=== PATIENT | female | born 1955 | race Caucasian/White ===

== ENCOUNTER 2017-05-22 11:36 | Emergency (ER) | payer OTHER ==
[~2017-05-22] VITALS: Ht 165.1 cm; Wt 86.2 kg
--- OUTSIDE RECORDS SUMMARY | 2017-05-22 11:45 | XMS REPORT | Continuity of Care Document ---
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 FARMER Ot V76.12 05/29/2015 Ot 793.89 05/29/2015 Ot V76.12 05/29/2015 Ot 793.80 05/29/2015 Ot 793.80 05/29/2015 Ot V67.9 05/29/2015 Ot V76.12 05/29/2015 Ot V76.12 05/29/2015 Ot 240.9 05/29/2015 JACOB SLOAN, EVANS Salas Ot 241.0 05/29/2015 TED SIGALA GINGER FARMER Ot 240.9 05/29/2015 VIVIAN GORMAN MD Ot 193 05/29/2015 VIVIAN GORMAN MD Ot 193 05/29/2015 TED SIGALA GINGER FARMER Ot V76.12 05/29/2015 Ot 193 05/29/2015 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 Visit Date/Time Discharge Status Pt. Type Provider Facility Loc./Unit Complaint [id number] 05/29/2015 16:46:00 2014 23:59:59 CLS Outpatient BOB SIGALA DO [facility] LAB [id number] 04/27/2014 11:04:00 2013 23:59:59 CLS Outpatient TED SIGALA GINGER FARMER [facility] RAD [id number] 03/29/2013 10:15:00 2012 00:01:00 DIS Outpatient VIVIAN GORMAN MD [facility] ONC [id number] 04/26/2013 14:34:00 2012 23:59:59 CLS Outpatient TED SIGALA GINGER FARMER [facility] RAD [id number] 04/07/2013 08:54:00 2012 23:59:59 CLS Outpatient VIVIAN GORMAN MD [facility] RAD PAPILLARY THYROID CA [id number] 03/29/2013 10:53:00 2012 23:59:59 CLS Outpatient VIVIAN GORMAN MD [facility] RAD PAPILLARY THYROID CA [id number] 12/07/2012 10:49:00 2012 23:59:59 CLS Outpatient TED SIGALAP [facility] RAD [id number] 11/09/2012 10:07:00 2012 23:59:59 CLS Outpatient JACOB SLOAN, EVANS Salas [facility] RAD [id number] 06/06/2013 00:00:00 Document Registration [id number] 10/03/2012 12:53:00 Document Registration [id number] 04/26/2012 10:19:00 Document Registration [id number] 04/23/2011 13:36:00 Document Registration [id number] 08/26/2010 12:24:00 Document Registration [id number] 01/08/2010 10:45:00 Document Registration [id number] 12/18/2009 12:45:00 Document Registration
[2017-05-22] MEDS ORDERED: ACYC200C (11:57)
[2017-05-22] MEDS ORDERED: CEFD300C3 (11:57)
[2017-05-22] MEDS ORDERED: LEVO25TA5 (11:57)
[2017-05-22] MEDS ORDERED: BUPR150T14 (11:57)
[2017-05-22] MEDS ORDERED: LIRA0.6P3 (11:57)
[2017-05-22] MEDS ORDERED: OXYMETAZOLINE (AFRIN) 0.05% NA 15 ML BTL ONE (12:18)
--- NOTE | 2017-05-22 13:03 | ED EENT ---
History of Present Illness General Chief Complaint: Nasal Problems Stated Complaint: NOSE BLEED Nursing Triage Note: AMBULATED TO ROOM 06 WITH COMPLAINTS OF RIGHT SIDED NOSE BLEED SINCE 0800 TODAY. STATES IT HAS BLED OFF AND ON WITH HER COLD BUT TODAY IT WONT STOP. Source: patient Exam Limitations: no limitations History of Present Illness Time seen by provider: 12:05 Initial Comments 61-year-old female patient presents to the emergency department with complaints of a right-sided nosebleed since 0800 today. Patient reports she has had a cold and her sinuses have been dry. Denies bruising easily. Timing/Duration: this morning Location: nose Prearrival Treatment: squeezing nostrils Presenting Symptoms/Injuries: nosebleed Modifying Factors: Worse With Other (no improvement with pressure) Allergies and Home Medications Allergies Coded Allergies: clindamycin (Verified Allergy, Unknown, 05/22/17) levofloxacin (Verified Allergy, Unknown, 05/22/17) sulfamethoxazole (Verified Allergy, Unknown, 05/22/17) trimethoprim (Verified Allergy, Unknown, 05/22/17) Home Medications Acyclovir 200 Mg Capsule, (Reported) Bupropion HCl 150 Mg Tablet.er, (Reported) Cefdinir 300 Mg Capsule, (Reported) Levothyroxine Sodium 25 Mcg Tablet, (Reported) Liraglutide 0.6 Mg/0.1 Ml Pen.injctr, (Reported) Review of Systems Constitutional: No chills, No dizziness, No fever, No malaise, No weakness Eyes: No Symptoms Reported Ears: No Symptoms Reported Nose: see HPI, congestion, epistaxis, denies pain Mouth: no symptoms reported Throat: no symptoms reported Respiratory: cough, No dyspnea on exertion, No hemoptysis, No short of breath Cardiovascular: No chest pain, No palpitations, No syncope Gastrointestinal: No abdominal pain, No hematemesis, No loss of appetite, No melena, No nausea, No vomiting Skin: no symptoms reported Neurological: No Symptoms Reported Hematologic/Lymphatic: Denies Anemia, Denies Easy Bleeding, Denies Easy Bruising All Other Systems Reviewed Negative Unless Noted: Yes (Negative excepted noted.) Past Rmfkdpx-Sygrhb-Qxwnvs Hx Patient Social History Alcohol Use: Denies Use Recreational Drug Use: No Smoking Status: Never a Smoker Recent Foreign Travel: No Contact w/Someone Who Travel: No Recent Infectious Disease Expo: No Surgeries History of Surgeries: Yes (THYROIDECTOMY, DEVIATED SEPTUM) Respiratory History of Respiratory Disorde: No Cardiovascular History of Cardiac Disorders: No Neurological History of Neurological Disord: No Gastrointestinal History of Gastrointestinal Di: No Musculoskeletal History of Musculoskeletal Dis: No Endocrine History of Endocrine Disorders: Yes (UNDIAGNOSED DIABETIC) Cancer Did You Recieve Any Treatments: No Psychosocial History of Psychiatric Problem: No Reviewed Nursing Assessment Reviewed/Agree w Nursing PMH: Yes Family Medical History Significant Family History: No Pertinent Family Hx Physical Exam Vital Signs Vital Sign - Last 12Hours 05/22/17 11:40 Temp 98.0 Pulse 91 Resp 18 B/P (MAP) 173/119 Pulse Ox 96 O2 Delivery Room Air General Appearance: WD/WN, no apparent distress Eyes: bilateral eye normal inspection, bilateral eye PERRL, bilateral eye EOMI Ears: bilateral ear auricle normal, bilateral ear canal normal, bilateral ear TM normal Nose: No active bleeding, dried blood, No sinus tenderness Mouth/Throat: normal mouth inspection, pharynx normal, No trismus, No uvula swelling, No other (no evidence of active bleeding or blood staining of the posterior pharynx noted) Neck: supple, normal inspection Cardiovascular: regular rate, rhythm, no murmur Respiratory: lungs clear, normal breath sounds, no respiratory distress, no accessory muscle use Neurologic/Psychiatric: alert, normal mood/affect, oriented x 3 Skin: normal color, warm/dry Progress/Results/Core Measures Results/Orders My Orders Orders - SHU CRUZ Oxymetazoline 0.05% Nasal [place] (Afrin 0. (05/22/17 21:00) Oxymetazoline 0.05% Nasal [place] (Afrin 0. (05/22/17 12:18) Medications Given in ED Current Medications Medications Dose Ordered Sig/Shiela Route Start Time Stop Time Status Last Admin Dose Admin Oxymetazoline HCl 15 ml STK-MED ONCE .ROUTE 05/22/17 12:18 05/22/17 12:27 DC 05/22/17 12:29 15 ML Vital Signs/I&O Vital Sign - Last 12Hours 05/22/17 05/22/17 11:40 13:24 Temp 98.0 Pulse 91 88 Resp 18 18 B/P (MAP) 173/119 Pulse Ox 96 98 O2 Delivery Room Air Blood Pressure Mean: 137 Departure Communication (Admissions) Progress Notes Patient seen and evaluated. Nose clamp applied to the patient and 3 sprays of Afrin used in each nostril 1 dose. Patient had no recurrence of epistaxis while in the emergency department. Plan for discharge to home. Impression Impression: Primary Impression: Epistaxis Disposition: 01 HOME, SELF-CARE Condition: Improved Departure-Patient Inst. Decision time for Depature: 12:57 Referrals: BOB SIGALA DO (PCP/Family) Primary Care Physician Patient Instructions: Nosebleeds (DC) Add. Discharge Instructions: All discharge instructions reviewed with patient and/or family. Voiced understanding. Afrin nasal spray 2-3 sprays in each nostril twice daily for 3 days. Continue usual home medications except hold the Excedrin Migraine headache. No aspirin, Aleve, or ibuprofen for 7 days. If nosebleed recurs, apply pressure for 10-20 minutes and apply an ice pack. Return to the emergency department a few unable to stop the bleeding. Follow-up with your family practitioner for recheck as an outpatient. Return in the emergency department for worsened symptoms or any other concerns. SHU CRUZ May 22, 2017 13:03
[2017-05-22 13:24] VITALS: BP 144/97
[2017-05-22] MEDS ORDERED: OXYMETAZOLINE (AFRIN) 0.05% NA 15 ML BTL SCH (21:00)
== END 2017-05-22 13:24 | disposition home or self-care (01) ==
LOC: EDUNIT# 11:36 → ER 11:37
DX: R04.0 Epistaxis (principal); Z90.89 Acquired absence of other organs
CPT/HCPCS: 99282

== ENCOUNTER 2017-06-20 18:43 | Emergency (ER) | payer OTHER ==
[~2017-06-20] VITALS: Ht 165.1 cm; Wt 90.7 kg
[~2017-06-20 18:43] MED LIST: ACYC200C; BUPR150T14; CEFD300C3; LEVO25TA5; LIRA0.6P3
--- OUTSIDE RECORDS SUMMARY | 2017-06-20 18:48 | XMS REPORT | Continuity of Care Document ---
Author Author [facility] Organization [facility] Address Unknown Phone Unavailable Allergies Active Description Code Type Severity Reaction Onset Reported/Identified Relationship to Patient Clinical Status Yes No Known Drug Allergies [id number] Drug Allergy Unknown N/A 03/27/2013 Yes clindamycin [id number] Drug Allergy Unknown N/A 05/22/2017 Yes levofloxacin [id number] Drug Allergy Unknown N/A 05/22/2017 Yes sulfamethoxazole [id number] Drug Allergy Unknown N/A 05/22/2017 Yes trimethoprim [id number] Drug Allergy Unknown N/A 05/22/2017 Medications There is no data. Problems Date Dx Coded Attending Type Code Diagnosis Diagnosed By 06/05/2013 VIVIAN GORMAN MD Ot 193 05/11/2014 TED SIGALA E LEARNING COORDINATOR Ot V76.12 05/29/2015 Ot 793.89 05/29/2015 Ot V76.12 05/29/2015 Ot 793.80 05/29/2015 Ot 793.80 05/29/2015 Ot V67.9 05/29/2015 Ot V76.12 05/29/2015 Ot V76.12 05/29/2015 Ot 240.9 05/29/2015 JACOB SLOAN, EVANS Salas Ot 241.0 05/29/2015 TED SIGALA Ot 240.9 05/29/2015 VIVIAN GORMAN MD Ot 193 05/29/2015 VIVIAN GORMAN MD Ot 193 05/29/2015 TED SIGALA Ot V76.12 05/29/2015 Ot 193 05/29/2015 TED SIGALAP Ot V76.12 06/07/2015 BOB SIGALA DO Ot L73.9 2016 VIVIAN GORMAN MD Ot 193 MALIGN NEOPL THYROID 10/26/2016 VIVIAN GORMAN MD Ot 193 MALIGN NEOPL THYROID 05/22/2017 Ot 193 MALIGN NEOPL THYROID Procedures There is no data. Results There is no data. Encounters ACCT No. Visit Date/Time Discharge Status Pt. Type Provider Facility Loc./Unit Complaint [id number] 05/22/2017 11:37:00 05/22/2017 13:24:00 DIS Emergency SHU SALINAS [facility] ER NOSE BLEED [id number] 05/29/2015 16:46:00 05/29/2015 23:59:59 CLS Outpatient BOB SIGALA DO [facility] LAB [id number] 04/27/2014 11:04:00 04/27/2014 23:59:59 CLS Outpatient TED SIGALA [facility] RAD [id number] 03/29/2013 10:15:00 06/05/2013 00:01:00 DIS Outpatient VIVIAN GORMAN MD [facility] ONC [id number] 04/26/2013 14:34:00 04/26/2013 23:59:59 CLS Outpatient TED SIGALAP [facility] RAD [id number] 04/07/2013 08:54:00 04/07/2013 23:59:59 CLS Outpatient VIVIAN GORMAN MD [facility] RAD PAPILLARY THYROID CA [id number] 03/29/2013 10:53:00 03/29/2013 23:59:59 CLS Outpatient VIVIAN GORMAN MD [facility] RAD PAPILLARY THYROID CA [id number] 12/07/2012 10:49:00 12/07/2012 23:59:59 CLS Outpatient TED SIGALAP [facility] RAD [id number] 11/09/2012 10:07:00 11/09/2012 23:59:59 CLS Outpatient EVANS JAMES MD [facility] RAD [id number] 06/06/2013 00:00:00 Document Registration [id number] 10/03/2012 12:53:00 Document Registration [id number] 04/26/2012 10:19:00 Document Registration [id number] 04/23/2011 13:36:00 Document Registration [id number] 08/26/2010 12:24:00 Document Registration [id number] 01/08/2010 10:45:00 Document Registration [id number] 12/18/2009 12:45:00 Document Registration
--- NOTE | 2017-06-20 20:39 | ED EENT ---
History of Present Illness General Chief Complaint: Nasal Problems Stated Complaint: NOSE BLEED Nursing Triage Note: SPONTANEOUS EPITAXIS STARTING 1330 Source: patient, spouse Exam Limitations: no limitations History of Present Illness Time seen by provider: 19:35 Initial Comments 62-year-old female patient presents to the emergency department complaints of right-sided nosebleed since 1300 today. Reports bleeding has been intermittent. She is able to get it to stop, but recurs daily. She is scheduled on June [address] winston for this. Patient was seen by this examiner 1 month ago for similar complaints. Timing/Duration: abrupt, intermittent, other (one month) Location: nose Prearrival Treatment: over the counter meds (tqix-hqc-svkuije saline spray and chills.), squeezing nostrils Presenting Symptoms/Injuries: nose bleed Allergies and Home Medications Allergies Coded Allergies: clindamycin (Verified Allergy, Unknown, 05/22/17) levofloxacin (Verified Allergy, Unknown, 05/22/17) sulfamethoxazole (Verified Allergy, Unknown, 05/22/17) trimethoprim (Verified Allergy, Unknown, 05/22/17) Home Medications Levothyroxine Sodium 25 Mcg Tablet, (Reported) Liraglutide 0.6 Mg/0.1 Ml Pen.injctr, (Reported) Past Naybqjo-Bntlpf-Stleqg Hx Patient Social History Alcohol Use: Denies Use Recreational Drug Use: No Smoking Status: Never a Smoker 2nd Hand Smoke Exposure: No Recent Foreign Travel: No Contact w/Someone Who Travel: No Recent Infectious Disease Expo: No Recent Hopitalizations: No Immunizations Up To Date Tetanus Booster (TDap): Unknown Seasonal Allergies Seasonal Allergies: No Surgeries History of Surgeries: Yes (THYROIDECTOMY, DEVIATED SEPTUM, DENTAL) Surgeries: Tubal Ligation Respiratory History of Respiratory Disorde: No Cardiovascular History of Cardiac Disorders: No Neurological History of Neurological Disord: Yes Neurological Disorders: Headaches /Migraines Reproductive System : No 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, 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 Genitourinary History of Genitourinary Disor: No Gastrointestinal History of Gastrointestinal Di: No Musculoskeletal History of Musculoskeletal Dis: No Endocrine History of Endocrine Disorders: Yes Endocrine Disorders: Hypothyroidsim HEENT History of HEENT Disorders: Yes (CHRONIC EPITAXIS) Cancer History of Cancer: No Did You Recieve Any Treatments: No Psychosocial History of Psychiatric Problem: No Integumentary History of Skin or Integumenta: No Blood Transfusions History of Blood Disorders: No Adverse Reaction to a Blood Tr: No Family Medical History Significant Family History: No Pertinent Family Hx Physical Exam Vital Signs Vital Sign - Last 12Hours 06/20/17 19:39 Temp 97.1 Pulse 67 Resp 18 B/P (MAP) 154/79 (104) Pulse Ox 99 O2 Delivery Room Air Progress/Results/Core Measures Results/Orders Vital Signs/I&O Vital Sign - Last 12Hours 06/20/17 19:39 Temp 97.1 Pulse 67 Resp 18 B/P (MAP) 154/79 (104) Pulse Ox 99 O2 Delivery Room Air Blood Pressure Mean: 104 Departure Impression Impression: Primary Impression: Epistaxis Disposition: HOME, SELF-CARE Condition: Improved Departure-Patient Inst. Decision time for Depature: 20:38 Referrals: BOB SIGALA DO (PCP/Family) Primary Care Physician Patient Instructions: Nosebleeds (DC) Add. Discharge Instructions: All discharge instructions reviewed with patient and/or family. Voiced understanding. Continue saline nasal spray or gel and cool humidifier. Compression and ice packs as needed for nosebleeds. Follow-up with Dr. Winston on June 23 as previously scheduled. Return in the emergency department for worsened symptoms or any other concerns. SHU CRUZ Jun 20, 2017 20:38
[2017-06-20 20:54] VITALS: BP 142/101
== END 2017-06-20 20:54 | disposition home or self-care (01) ==
LOC: EDUNIT# 18:43 → ER 18:44
DX: R04.0 Epistaxis (principal); G43.909 Migraine, unspecified, not intractable, without status migrainosus; E03.9 Hypothyroidism, unspecified; Z98.51 Tubal ligation status; Z90.89 Acquired absence of other organs
CPT/HCPCS: 99282

== ENCOUNTER → 2019-06-06 | Outpatient (CLI) | payer BC ==
--- NOTE | 2019-06-06 17:02 | Diagnostic Imaging Report ---
INDICATION: Left knee pain. COMPARISON: None. FINDINGS: Three views of the left knee joint demonstrate no acute fracture or dislocation. No focal osseous lesions are seen. No significant joint effusion is seen. The surrounding soft tissue structures are unremarkable. There are no radiopaque foreign bodies. IMPRESSION: 1. No acute fractures or dislocations of the left knee joint. Dictated by: Dictated on workstation # [id number]
== END ==
LOC: RAD 16:40
PROVIDERS: ATTEND Internal Medicine
DX: M25.562 Pain in left knee (principal)
CPT/HCPCS: 73562

== ENCOUNTER → 2020-05-27 | Outpatient (CLI) | payer BC | LOC: LABNPT 05:08 | PROVIDERS: ATTEND Internal Medicine | DX: Z20.828 Contact with and (suspected) exposure to other viral communicable diseases (principal) | CPT/HCPCS: 87635 ==

== ENCOUNTER 2022-03-19 08:51 | Outpatient (CLI) | payer BC ==
[~2022-03-19] VITALS: Ht 165.1 cm; Wt 95.3 kg
[~2022-03-19 08:51] MED LIST changes: +ACYC-108; -ACYC200C; +BUPR-105; -BUPR150T14
[2022-03-19] MEDS ORDERED: BEBTELOVIMAB 175 MG/2 ML VIAL IV ONE (09:15)
[2022-03-19] MEDS ORDERED: diphenhydrAMINE 50 MG/ML INJ (BENADRYL) IV PRN (09:15)
[2022-03-19] MEDS ORDERED: EPINEPHrine INJECTION 1 MG/ML AMP IM PRN (09:15)
[2022-03-19] MEDS ORDERED: ACETAMINOPHEN 500 MG TAB (TYLENOL) PO PRN (09:15)
[2022-03-19] MEDS ORDERED: ONDANSETRON 4 MG/2 ML (SDV) Z0FRAN IV PRN (09:15)
[2022-03-19 09:23] VITALS: BP 130/67
[2022-03-19 09:58] VITALS: BP 130/88
== END 2022-03-19 10:01 | disposition home or self-care (01) ==
LOC: INFUSION 08:51
PROVIDERS: ATTEND Nurse Practitioner Family
DX: U07.1 COVID-19 (principal)